=== PATIENT | female | born 1940 | race Caucasian/White ===

== ENCOUNTER 2016-09-28 12:39 | Observation (INO) | payer MEDICARE, OTHER ==
--- NOTE | ~2016-09-28 | EKG ---
PATIENT: HALEY SHELBY UNIT #: [id number] Ventricular Rate: 81 BPM Atrial Rate: 81 BPM P-R Interval: 146 ms QRS Duration: 96 ms Q-T Interval: 398 ms QTC Calculation(Bezet): 462 ms P Egel[place]: 88 degrees Calculated R [place]: 75 degrees Calculated T [place]: 68 degrees Diagnosis Line: Normal sinus rhythm Diagnosis Line: Poor data quality Diagnosis Line: Poor R wave progression questionable lead position Diagnosis Line: or body habitus Diagnosis Line: Abnormal ECG Diagnosis Line: When compared with ECG of 20-MAY-2016 19:42, Diagnosis Line: Borderline criteria for Anterior infarct are now Diagnosis Line: Present Diagnosis Line: Borderline criteria for Anterolateral infarct are Diagnosis Line: now Present Diagnosis Line: Confirmed by MOIZ WILSON MD ([id number]) on 09/28/2016 Diagnosis Line: 4:56:02 PM INTERPRETING MD: STEVE ANAYA
--- NOTE | ~2016-09-28 | US77 ---
[facility] A Service of [facility] RADIOLOGY TEXT RESULTS PATIENT: HALEY SHELBY LOCATION: [place] [address] : 40 UNIT #: [id number] AGE: [address]: Omaira Sutherland MD SEX: F ORDER DR: [id number] [facility] [address] [place], [place] [address] [id number] I MR#: [id number] Acc #: [id number] NAME: HALEY SHELBY : 1940 SEX: F STUDY DATE/TIME: 09/29/2016 7:32 UNIT: [facility] ROOM: [facility] STUDY DESCRIPTION: US Kidney Bilateral Complete Attending Physician: Omaira Sutherland M.D. Ordering Physician: Karyn Seay M.D. Primary Care Physician: Tacho Simmons M.D. MEDICAL IMAGING REPORT This report is preliminary unless electronic signature is present EXAM Bilateral renal ultrasound Date: 09/29/2016 HISTORY 76-year-old female with acute renal insufficiency. Abdominal pain. GFR 39.8. Chronic kidney disease stage III. Chronic respiratory failure. COPD. COMPARISON None. FINDINGS The right kidney measures 9.3 cm and the left kidney measures 8.7 cm in length. A tiny cyst is demonstrated in the interpolar right kidney measuring about 7 mm. No suspicious solid mass is seen within either kidney. There is slight increased bilateral renal echogenicity suggesting changes of chronic medical renal disease. No shadowing renal stone is seen on either side. There is no hydronephrosis. Urinary bladder has an unremarkable sonographic appearance. IMPRESSION 1. No hydronephrosis. 2. Bilateral renal cortex appears echogenic suggesting changes of chronic medical renal disease. 3. Subcentimeter right renal cyst. Dictated by... Olimpia Kerr M.D. THIS IS AN ELECTRONICALLY VERIFIED REPORT Olimpia Kerr M.D. at 09/30/2016 8:46 AM [facility] A Service of [facility] RADIOLOGY TEXT RESULTS PATIENT: HALEY SHELBY LOCATION: [place] [address]- : 40 UNIT #: [id number] AGE: [address]: Omaira Sutherland MD SEX: F ORDER DR: VI/bri TD: 09/29/2016 10:52 JOB #: [id number] MEDICAL IMAGING REPORT Page 1 of 1 COPY
--- NOTE | ~2016-09-28 | HP ---
Unit #: [id number] #: [id number] Patient: HALEY SHELBY [id number] [address] [address] [id number] I MR#: [id number] NAME: HALEY SHELBY ROOM: 55 Age: 76 Sex: F Admission Date: 09/28/2016 : 1940 Attending Physician: Karyn Seay M.D. Primary Care Physician: Tacho Simmons M.D. HISTORY AND PHYSICAL CHIEF COMPLAINT Fall. HISTORY OF PRESENT ILLNESS The patient is a 76-year-old female with past medical history of chronic kidney disease, coronary artery disease, COPD with continued tobacco abuse, hypothyroidism, bipolar disorder, dementia, who presented to the emergency department for evaluation of the above. The patient states that she had two falls today. She states that she fell while trying to get dressed. She denies any fever, no cough or cold symptoms, no bowel or bladder problems. She states that now she feels "great." In the emergency department, multiple imaging studies were done and showed nothing acute. Laboratory is notable for BUN 41, creatinine 2.1. She is being admitted to [facility] for evaluation and further treatment. She received a 500 mL normal saline bolus in the emergency department. PAST MEDICAL HISTORY 1. Admission to [facility] 12/26 through 12/29/2015 for acazo-hk-ahxydxm respiratory failure secondary to COPD exacerbation. 2. Chronic respiratory failure. The patient denies. 3. COPD with continued tobacco abuse. 4. Bipolar disorder. 5. Hypothyroidism. 6. Chronic kidney disease, stage 3. 7. Coronary artery disease. PAST SURGICAL HISTORY Cleft palate repair. ALLERGIES 1. Penicillin. 2. Nicotine. HOME MEDICATIONS 1. Omeprazole. 2. Levothyroxine. 3. Florastor. 4. Fluticasone. 5. Iron. Unit #: [id number] #: [id number] Patient: HALEY SHELBY 6. Vitamin B. 7. Allopurinol. 8. Valproic acid. 9. Aspirin. Home medications will need to be reviewed and verified. SOCIAL HISTORY The patient is at a penitentiary. She continues to smoke four cigarettes daily. Her CODE STATUS is a DO NOT RESUSCITATE per penitentiary documentation. FAMILY HISTORY No coronary artery disease. REVIEW OF SYSTEMS A complete review of systems is negative except as indicated in the HPI. DIAGNOSTIC STUDIES LABORATORY: Complete blood count is essentially normal. Basic metabolic panel notable for a sodium of 146, chloride 116, BUN 41, creatinine 2.1. Urinalysis is essentially negative. IMAGING: CT of the head shows nothing acute. CT of the cervical spine shows nothing acute. Chest x-ray shows nothing acute. Bilateral knee x-rays show no fracture. PHYSICAL EXAMINATION VITAL SIGNS: Temperature 97.3, pulse 82, respirations 20, blood pressure 145/69, oxygen saturation 98% on room air. (Continued Below) Dictated by Lindsay Munoz/vikas TD: 09/28/2016 18:00 JOB #: [id number] CONTINUATION PHYSICAL EXAMINATION GENERAL: The patient is a female who is awake and alert in no acute distress. HEENT: The patient has an abraded contusion left frontal region. Mucous membranes are dry. NECK: Supple. Trachea is midline. LUNGS: Clear to auscultation bilaterally with no increased work of breathing. HEART: Regular rate and rhythm. ABDOMEN: Soft, nontender. Bowel sounds present in all four quadrants. Unit #: [id number] #: [id number] Patient: HALEY SHELBY EXTREMITIES: Nontender with no pedal edema. NEUROLOGIC: Patient is awake and alert. She is oriented to person and place. She follows commands. PSYCHIATRIC: The patient is somewhat agitated. She does not want to be admitted. SKIN OF EXTREMITIES: Warm and dry. ASSESSMENT The patient is a 76-year-old female with: 1. General weakness. 2. Frequent falls. The patient had two falls today. 3. Xcsko-cc-kgxhcze kidney disease. Patient's creatinine was 1.3 on 05/20/2016, it is 2.1 today. 4. History of coronary artery disease. 5. Chronic obstructive pulmonary disease with continued tobacco abuse. 6. Hypothyroidism. 7. Bipolar disorder. 8. Dementia. PLAN 1. Admit for observation to intermediate level. I spoke with Bhavesh at the penitentiary who states that the patient is "not in her right mind" to make decisions. She does have dementia. I attempted to call the next of kin, Kizzy, at the number listed on the chart and was unable to reach that person. 2. Pureed diet with thickened liquids. 3. Normal saline at 75 mL/h. 4. PT/OT to evaluate and treat. 5. Bedrest. 6. Fall precautions. 7. Urine sodium, creatinine and eosinophils. 8. Renal ultrasound for further evaluation of acute kidney injury. 9. Check CPK. 10. Strict I's and O's. 11. Check EKG and cardiac enzymes. 12. Supplemental oxygen. 13. P.r.n. DuoNeb. 14. TSH. 15. Repeat labs in the morning. 16. SCDs for DVT prophylaxis. 17. Regarding CODE STATUS the patient is a DO NOT RESUSCITATE. Dictated by Lindsay Munoz/vikas TD: 09/28/2016 18:21 JOB #: [id number] CC: Addi/silverio Please Delete Unit #: [id number] #: [id number] Patient: HALEY SHELBY HISTORY AND PHYSICAL Page 1 of 1 X Karyn Seay MD HISTORY AND PHYSICAL
--- NOTE | ~2016-09-28 | CR170 ---
[facility] A Service of [facility] RADIOLOGY TEXT RESULTS PATIENT: HALEY SHELBY LOCATION: [place] [address]- : 40 UNIT #: [id number] AGE: [address]: Omaira Sutherland MD SEX: F ORDER DR: [id number] [facility] [address] [place], [place] [address] [id number] I MR#: [id number] Acc #: [id number] NAME: HALEY SHELBY : 1940 SEX: F STUDY DATE/TIME: 09/28/2016 14:04 UNIT: [facility] ROOM: [facility] STUDY DESCRIPTION: CR Knee 2 Views Rt Attending Physician: Karyn Seay M.D. Ordering Physician: Savannah Agrawal M.D. Primary Care Physician: Tacho Simmons M.D. MEDICAL IMAGING REPORT This report is preliminary unless electronic signature is present EXAM Right knee 2 views HISTORY Fell today bruising the knees. FINDINGS 2 views are submitted. The bony elements are intact. No fractures are identified. There is osteopenia. CONCLUSION Osteopenia, otherwise negative. Dictated by... Polo Romero M.D. THIS IS AN ELECTRONICALLY VERIFIED REPORT Polo Romero M.D. at 10/02/2016 7:15 AM DELTA/johann TD: 09/28/2016 21:29 JOB #: [id number] MEDICAL IMAGING REPORT Page 1 of 1 COPY
--- NOTE | ~2016-09-28 | CT52 ---
[facility] A Service of [facility] RADIOLOGY TEXT RESULTS PATIENT: HALEY SHELBY LOCATION: [facility]- : 40 UNIT #: [id number] AGE: [address]: Omaira Sutherland MD SEX: F ORDER DR: [id number] [facility] [address] [place], [place] [address] [id number] I MR#: [id number] Acc #: [id number] NAME: HALEY SHELBY : 1940 SEX: F STUDY DATE/TIME: 09/28/2016 14:32 UNIT: [facility] ROOM: [facility] STUDY DESCRIPTION: CT Cervical Spine Wo Cont Attending Physician: Karyn Seay M.D. Ordering Physician: Savannah Agrawal M.D. Primary Care Physician: Tacho Simmons M.D. MEDICAL IMAGING REPORT This report is preliminary unless electronic signature is present EXAM CT of the cervical spine. HISTORY SUPPLIED Fell at [facility] today, hit head on floor, complaining of neck pain. TECHNIQUE Axial imaging of the cervical spine was performed with multiplanar reconstructions. This CT exam was performed with one or more of the following radiation dose reduction techniques: Automatic exposure control, adjustment of mA and/or kV according to patient size, and iterative reconstruction. FINDINGS Patient has scoliosis. There is fusion of the posterior elements at C3-4 and the posterior aspect of the vertebral bodies at C3-4. There is very mild anterolisthesis of C3 on 4. There is disc space narrowing at C4-5 and 5-6 with endplate sclerosis in the inferior endplate of C5. There are no obvious fractures. There is debris present within the esophagus. There is no paravertebral soft tissue swelling. The patient does have evidence of chronic lung disease. CONCLUSION Scoliosis with fusion of the posterior elements at C3-4, probably congenital, and at least partial fusion of the vertebral bodies along the posterior aspect of the vertebral bodies at C3-4. There is very mild anterolisthesis of 3 on 4, but this appears fixed. There is evidence of degenerative disc disease at C4-5 and 5-6. No fractures are identified. There is multilevel facet disease. Dictated by... Polo Romero M.D. [facility] A Service of [facility] RADIOLOGY TEXT RESULTS PATIENT: HALEY SHELBY LOCATION: [facility] 55- : 40 UNIT #: [id number] AGE: [address]: Omaira Sutherland MD SEX: F ORDER DR: THIS IS AN ELECTRONICALLY VERIFIED REPORT Polo Romero M.D. at 10/02/2016 7:14 AM DELTA/deepak TD: 09/28/2016 22:12 JOB #: [id number] MEDICAL IMAGING REPORT Page 1 of 1 COPY
--- NOTE | ~2016-09-28 | CR169 ---
[facility] A Service of [facility] RADIOLOGY TEXT RESULTS PATIENT: HALEY SHELBY LOCATION: [place] [address] : 40 UNIT #: [id number] AGE: [address]: Omaira Sutherland MD SEX: F ORDER DR: [id number] [facility] [address] [place], [place] [address] [id number] I MR#: [id number] Acc #: [id number] NAME: HALEY SHELBY : 1940 SEX: F STUDY DATE/TIME: 09/28/2016 14:03 UNIT: [facility] ROOM: [facility] STUDY DESCRIPTION: CR Knee 2 Views Lt Attending Physician: Karyn Seay M.D. Ordering Physician: Savannah Agrawal M.D. Primary Care Physician: Tacho Simmons M.D. MEDICAL IMAGING REPORT This report is preliminary unless electronic signature is present EXAM Left knee 2 views HISTORY SUPPLIED Fell today, bruises on knees. FINDINGS AP and lateral views are obtained showing diffuse osteopenia. The underlying bony elements are intact. No fractures are seen. CONCLUSION Osteopenia. Otherwise negative. Dictated by... Polo Romero M.D. THIS IS AN ELECTRONICALLY VERIFIED REPORT Polo Romero M.D. at 10/02/2016 7:15 AM DELTA/johann TD: 09/28/2016 21:41 JOB #: [id number] MEDICAL IMAGING REPORT Page 1 of 1 COPY
--- NOTE | ~2016-09-28 | CR71 ---
[facility] A Service of [facility] RADIOLOGY TEXT RESULTS PATIENT: HALEY SHELBY LOCATION: [place] [address]- : 40 UNIT #: [id number] AGE: [address]: Omaira Sutherland MD SEX: F ORDER DR: [id number] [facility] [address] [place], [place] [address] [id number] I MR#: [id number] Acc #: [id number] NAME: HALEY SHELBY : 1940 SEX: F STUDY DATE/TIME: 09/28/2016 14:07 UNIT: [facility] ROOM: [facility] STUDY DESCRIPTION: CR Chest Single View Attending Physician: Karyn Seay M.D. Ordering Physician: Savannah Agrawal M.D. Primary Care Physician: Tacho Simmons M.D. MEDICAL IMAGING REPORT This report is preliminary unless electronic signature is present EXAM AP portable chest, 09/28/16 COMPARISON 05/20/2016 HISTORY Shortness of breath beginning today. Fall. FINDINGS An AP view is obtained. The heart size is normal. There is ectasia of the thoracic aorta. There is some linear scarring in the bases. No acute infiltrates are seen. CONCLUSION Linear scarring in both lung bases. No acute process identified. Dictated by... Polo Romero M.D. THIS IS AN ELECTRONICALLY VERIFIED REPORT Polo Romero M.D. at 10/02/2016 7:15 AM Simba TD: 09/28/2016 21:29 JOB #: [id number] MEDICAL IMAGING REPORT Page 1 of 1 COPY
--- NOTE | ~2016-09-28 | CT71 ---
[facility] A Service of [facility] RADIOLOGY TEXT RESULTS PATIENT: HALEY SHELBY LOCATION: [facility] : 40 UNIT #: [id number] AGE: [address]: Omaira Sutherland MD SEX: F ORDER DR: [id number] [facility] [address] [place], [place] [address] [id number] I MR#: [id number] Acc #: [id number] NAME: HALEY SHELBY. : 1940 SEX: F STUDY DATE/TIME: 09/28/2016 14:32 UNIT: [facility] ROOM: [facility] STUDY DESCRIPTION: CT Head Wo Contrast Attending Physician: Karyn Seay M.D. Ordering Physician: Savannah Agrawal M.D. Primary Care Physician: Tacho Simmons M.D. MEDICAL IMAGING REPORT This report is preliminary unless electronic signature is present EXAM CT brain without contrast media HISTORY Fell at [facility] this evening for this morning, hit forehead. TECHNIQUE Axial imaging of the brain was performed without contrast and compared directly to 10/23/2013. This CT exam was performed with one or more of the following radiation dose reduction techniques: automatic exposure control, adjustment of mA and/or kV according to patient size, and iterative reconstruction. FINDINGS There is generalized enlargement of the ventricles and CSF-containing spaces. Some decreased attenuation in the periventricular white matter. No mass lesions, mass effect acute hemorrhage or edema. No intra or extraaxial fluid collections are present. No fractures are identified. CONCLUSION Generalized atrophy with small vessel deep white matter ischemic changes. No acute intracranial findings. Dictated by... Polo Romero M.D. THIS IS AN ELECTRONICALLY VERIFIED REPORT Polo Romero M.D. at 10/02/2016 7:15 AM DELTA/radha [facility] A Service of [facility] & [facility] RADIOLOGY TEXT RESULTS PATIENT: HALEY SHELBY LOCATION: [facility] : 40 UNIT #: [id number] AGE: [address]: Omaira Sutherland MD SEX: F ORDER DR: TD: 09/28/2016 21:59 JOB #: [id number] MEDICAL IMAGING REPORT Page 1 of 1 COPY
--- NOTE | ~2016-09-28 | DS ---
Unit #: [id number] #: [id number] Patient: HALEY SHELBY [id number] [address] [address] [id number] I MR#: [id number] NAME: HALEY SHELBY. ROOM: 55 Age: 76 Sex: F Admission Date: 09/28/2016 : 1940 Discharge Date: 09/30/2016 Attending Physician: Omaira Sutherland M.D. Primary Care Physician: Tacho Simmons M.D. DISCHARGE SUMMARY PRINCIPAL DIAGNOSES 1. Hypernatremia. 2. Acute kidney injury, prerenal. Discharge creatinine 1.2. 3. Mild thrombocytopenia, now resolved. 4. Hypothyroidism. 5. Chronic hypoxic respiratory failure, maintained on 2 liters of oxygen per nasal cannula continuously. 6. Chronic obstructive pulmonary disease. 7. Dementia. 8. Bipolar disorder. 9. Dysphagia. 10. Chronic kidney disease, stage 3, with baseline creatinine of 1.3. 11. Coronary artery disease. 12. Tobaccoism. 13. Mild protein malnutrition. 14. Non-anion gap metabolic acidosis. CONSULTANTS None. DIAGNOSTIC STUDIES IMAGING: Bilateral renal ultrasound on September 29, 2016 with echogenicity of bilateral renal cortex. Subcentimeter right renal cyst noted. X-ray of left knee on September 28, 2016 with osteopenia. X-ray of right knee on September 28, 2016 with osteopenia. Chest x-ray on September 28, 2016 without any acute findings. CT of the head without contrast on September 28, 2016 with generalized atrophy and small vessel white matter ischemic changes. CT of cervical spine without contrast on September 28, 2016 without evidence of fracture. CLINICAL HISTORY AND HOSPITAL COURSE Ms. Shelby is a 76-year-old female transferred from her nursing facility after a fall at the facility. In the emergency department she was found to have an elevated creatinine of 2.1. Multiple imaging studies were done, and these were all normal. She was placed in observation initially. The patient was maintained on IV fluids; specifically, normal saline. Unit #: [id number] #: [id number] Patient: HALEY SHELBY However, the following morning she was hypernatremic with a sodium level of 149. She has been changed to D5W, and today sodium is now down to 147. I am going to give her another 500 liters of D5W, and I think after that, I would encourage water intake at the facility. In regard to the patient's acute kidney injury, creatinine has now returned to her baseline of approximately 1.2. This can be followed up at the facility. The patient's other chronic conditions remained stable. She can be discharged back to her nursing facility today. DISCHARGE CONDITION Stable. DISCHARGE STATUS Discharge to [facility]. DISCHARGE MEDICATIONS 1. Oxygen at 2 liters per nasal cannula continuously. 2. DuoNeb nebulizer treatments 3 mL q.4 hours p.r.n. shortness of breath. 3. Depakote ER 500 mg at bedtime. 4. Remeron 7.5 mg at bedtime. 5. Artificial Tears 1 drop to both eyes b.i.d. 6. Guaifenesin 600 mg b.i.d. 7. Xalatan 1 drop to both eyes at bedtime. 8. [place] 5/325 mg 1 tablet p.o. q.6 hours p.r.n. pain. 9. Zyprexa 20 mg at bedtime. DISCHARGE INSTRUCTIONS Patient was instructed to follow a heart healthy diet. Her diet consistency should be thickened liquids and mechanical soft. She can increase her activity as tolerated. FOLLOW-UP Patient will follow up with facility director upon return. Recommend repeat BMP in 2-3 days. Dictated by... Omaira Sutherland M.D. PATO/anais TD: 09/30/2016 11:38 JOB #: [id number] Unit #: [id number] #: [id number] Patient: HALEY SHELBY DISCHARGE SUMMARY Page 1 of 1 X Omaira Sutherland MD DISCHARGE SUMMARY
[~2016-09-28 12:39] MED LIST: ABILIFY PO; ALOE VESTA56 G1 TP; ARTIFICIAL TEAR15 M3 OU; ASPIRIN PO; ASPIRIN81 MG PO; ASPIRINEC PO; ATENOLOL PO; ATIVAN PO; ATIVAN0.5 MG PO; AZO CRANBERRY450 M1 PO; B-12500 MCG PO; BUMETANIDE0.5 MG PO; CHEWABLE ASPIRI81 MG PO; CLARITIN10 M2 PO; CRANBERRY500 M1 PO; DEPAKOTE (UD)250 M1 PO; DEPAKOTE PO; DOXYCYCLINE HY100 M3 PO; DUONEB 2.5-0.5 M3 ML NEB; FLONASE16 GM; FLOVENT DI50 MCG/DIS INH; FLUTICASONE PRO16 GM; FOLIC ACID1 MG PO; GUAIFENESIN600 M1 PO; HYDROCODON-ACE1 EAC7 PO; IPRAT-ALBUT 0.5-3 ML INH; IPRAT-ALBUT 0.5-3 ML NEB; IRON PO; IRON325 ( 652 PO; KLONOPIN1 MG PO; LASIX PO; LASIX20 MG PO; LATANOPROST2.5 ML OP; LISINOPRIL PO; LITHIUM CARBON150 MG PO; LITHIUM PO; MIRTAZAPINE7.5 MG PO; MUCINEX D ER T1 EACH PO; MUCINEX DM TABL1 BOX; MULTI VITAMIN1 EACH PO; MYSOLINE250 MG PO; NAPROXEN PO; OMEPRAZOLE20 M2 PO; OXYGEN; PANTOPRAZOLE SO40 MG PO; POTASSIUM CHLO10 MEQ PO; PRIMIDONE250 MG PO; PROPRANOLOL PO; SEROQUEL XR300 MG PO; SYNTHROID PO; SYNTHROID0.15 MG PO; SYNTHROID125 PO; TRIHEXYPHENIDYL2 MG PO; TUBERCULIN MC; VALPROIC ACID250 MG PO; VITAMIN B-1100 M1 PO; XALATAN OU; ZOFRAN ODT4 MG PO; ZYLOPRIM100 MG PO; ZYPREXA15 MG PO
[2016-09-28 13:56] LABS: BASOPHIL% 0.5 % (0-2.5); HEMATOCRIT 42.4 % (35.0-45.0); HEMOGLOBIN 13.6 gm/dL (12.0-16.0); LYMPHOCYTE# 0.6 X10e3 (1.0-3.5); LYMPHOCYTE% 7.6 % (17.0-45.0); MEAN CELL VOLUME 94.6 FL (83-96); MEAN CORPUSCULAR HEMOGLOBIN 30.4 PG (28-34); MEAN CORPUSCULAR HGB CONC 32.2 g/dL (30-36); MEAN PLATELET VOLUME 9.3 FL (6.5-11.5); MONOCYTE# 0.5 X10e3 (0-1.0); MONOCYTE% 6.4 % (3.0-12.0); NEUTROPHIL# 6.3 X10e3 (1.5-7.1); NEUTROPHIL% 85.5 % (40-75); PLATELET COUNT 146 X10e3 (140-420); RED BLOOD COUNT 4.48 X10e (3.90-5.30); WHITE BLOOD COUNT 7.4 X10e3 (4.0-10.5)
[2016-09-28 13:57] LABS: DIFF IND NO
[2016-09-28 14:19] LABS: BUN/CREATININE RATIO 19.52; CALCIUM SERUM 9.7 mg/dL (8.4-10.2); CREATININE SERUM 2.1 mg/dL (0.6-1.4); GLOM FILT RATE Estimated 22.3 mL/min (>60); POTASSIUM 3.8 mmol/L (3.5-5.1)
[2016-09-28 15:11] LABS: URINE SOURCE CLEAN CATCH
[2016-09-28 15:36] LABS: URINE APPEARANCE CLEAR; URINE BILIRUBIN NEG (NEG); URINE BLOOD TRACE (NEG); URINE COLOR YELLOW; URINE GLUCOSE NEG (NEG); URINE KETONE TRACE (NEG); URINE LEUKOCYTE ESTERASE NEG (NEG); URINE NITRATE NEG (NEG); URINE PROTEIN NEG (NEG); URINE SPECIFIC GRAVITY 1.012 (1.003-1.035); URINE UROBILINOGEN 0.2 MG/DL (NEG)
[2016-09-28 15:39] LABS: U HYALINE CASTS AUWI 0-2 /[LPF]; URBCS1 AUWI 0-2 /[HPF] (0-2); URINE BACTERIA AUWI NEG (NEGATIVE); URINE SQUAMOUS EPITHELIAL CELL NONE SEEN /[HPF]; UWBCS1 AUWI 0-2 (0-5)
[2016-09-28 15:40] LABS: CULTURE INDICATED? NO
[2016-09-28] MEDS ORDERED: ARTIFICIAL TEAR15 ML OU (19:07)
[2016-09-28] MEDS ORDERED: GUAIFENESIN600 M1 PO (19:08)
[2016-09-28] MEDS ORDERED: OLANZAPINE20 MG PO (19:09)
[2016-09-28] MEDS ORDERED: DEPAKOTE ER PO (19:10)
[2016-09-28] MEDS ORDERED: XALATAN OU (19:12)
[2016-09-28] MEDS ORDERED: MIRTAZAPINE7.5 MG PO (19:12)
[2016-09-28] MEDS ORDERED: IPRAT-ALBUT 0.5-3 ML INH (19:14)
[2016-09-28] MEDS ORDERED: OXYGEN 2L (19:14)
[2016-09-28] MEDS ORDERED: HYDROCODON-ACE1 EAC7 PO (19:16)
[2016-09-28] MEDS ORDERED: [UNRECOGNIZED DRUG - REMARK] (19:17)
[2016-09-28 20:25] LABS: %MB 1.2 % (0.0-4.0)
[2016-09-29 00:41] LABS: %MB 1.1 % (0.0-4.0); MB 28.4 ng/ml
[2016-09-29 05:35] LABS: HEMATOCRIT 38.4 % (35.0-45.0); HEMOGLOBIN 12.3 gm/dL (12.0-16.0); MEAN CORPUSCULAR HEMOGLOBIN 30.3 PG (28-34); MEAN CORPUSCULAR HGB CONC 31.9 g/dL (30-36); MEAN PLATELET VOLUME 9.6 FL (6.5-11.5); RED BLOOD COUNT 4.04 X10e (3.90-5.30); RED CELL DISTRIBUTION WIDTH 15.1 % (11.0-15.5); WHITE BLOOD COUNT 5.8 X10e3 (4.0-10.5)
[2016-09-29 06:25] LABS: BILIRUBIN,TOTAL 0.6 mg/dL (0.2-2.0); BUN/CREATININE RATIO 34.61; CREATININE SERUM 1.3 mg/dL (0.6-1.4); GLOM FILT RATE Estimated 39.8 mL/min (>60); POTASSIUM 4.4 mmol/L (3.5-5.1); PROTEIN TOTAL SERUM 5.9 g/dL (6.0-8.3)
[2016-09-29 06:35] LABS: %MB 1.1 % (0.0-4.0); MB 18.5 ng/ml
[2016-09-29 07:11] LABS: CREATININE,RANDOM URINE 41 mg/dL; SODIUM URINE RANDOM 61 mmol/L
[2016-09-30 07:33] LABS: BUN/CREATININE RATIO 35.83; CALCIUM SERUM 8.8 mg/dL (8.4-10.2); CREATININE SERUM 1.2 mg/dL (0.6-1.4); GLOM FILT RATE Estimated 43.9 mL/min (>60); MAGNESIUM 1.9 mg/dL (1.6-3.0); POTASSIUM 4.1 mmol/L (3.5-5.1)
== END 2016-09-30 19:06 ==
LOC: CED 12:39 → CEDOF 16:45 → CED 17:08 → C5B 18:17 → CEDOF 18:17 → C5B 09-29 08:23
PROVIDERS: Emergency Medicine; Family Medicine; Internal Medicine
DX: E87.0 Hyperosmolality and hypernatremia (principal); N17.9 Acute kidney failure, unspecified; D69.6 Thrombocytopenia, unspecified; E03.9 Hypothyroidism, unspecified; J96.11 Chronic respiratory failure with hypoxia; Z99.81 Dependence on supplemental oxygen; J44.9 Chronic obstructive pulmonary disease, unspecified; F03.90 Unspecified dementia, unspecified severity, without behavioral disturbance, psychotic disturbance, mood disturbance, and anxiety; R29.6 Repeated falls; F31.9 Bipolar disorder, unspecified; R13.10 Dysphagia, unspecified; N18.3 Chronic kidney disease, stage 3 (moderate); I25.10 Atherosclerotic heart disease of native coronary artery without angina pectoris; E44.1 Mild protein-calorie malnutrition; E87.2 Acidosis; Z88.0 Allergy status to penicillin; F17.210 Nicotine dependence, cigarettes, uncomplicated; N28.1 Cyst of kidney, acquired; M41.9 Scoliosis, unspecified
CPT/HCPCS: 36415; 70450; 71010; 72125; 73560; 76770; 80048; 80053; 80164; 81003; 82550; 82553; 82570; 83735; 84300; 84443; 84484; 85025; 85027; 89190; 93005; 94640; 94760; 96360; 97163; 97166; 99284; G0378; G8978-GP; G8979-GP; G8980-GP; G8987-GO; G8988-GO; G8989-GO